=== PATIENT | male | born 1985 | race Caucasian/White ===

== ENCOUNTER 2024-09-24 17:14 | Emergency (ER) | payer BC, SELFPAY ==
[2024-09-24 17:15] VITALS: BP 170/85; PULSE 101; RESP 24; TEMP 36.8; O2SAT 100; BMI 32.3
--- NOTE | 2024-09-24 17:32 | EDS_ITS ---
<Statement entered by Slim Sánchez DO - 09/24/24 22:21> Patient was seen and examined with physician photographer assistant Chuyita All components of the history and physical confirmed and agreed. History of present illness and physical exam: Patient is a 59-year-old male with past medical history of anxiety who presents to the emergency department with concern for nicotine withdrawal. Patient states that for the past several months he has uses approximately 5 pouches a day and these are all varying and nicotine levels. He states that they range from 3 mg to 9 mg in strength. He states that he quit cold turkey and since then he has been having nausea, all headaches, shakiness. States he has been alternating Tylenol and Excedrin every 6 hours for the headache. He states that since the symptoms were not improving he came here for further evaluation management. Review of systems: As above Physical exam: Agree with above MDM: Patient is a 39-year-old male who presented to the emergency department with concern of nicotine withdrawal. On the differential diagnose includes but not limited to COVID, flu, RSV other viral etiology, nicotine withdrawal, substance abuse, alcohol withdrawal. Once workup is obtained reviewed he will be reevaluated. Patient given IV fluids, Toradol, Zofran and Ativan. Patient tested negative for COVID flu RSV. He is feeling much improved and would like to go home at this point in time. Patient was encouraged to follow- up with primary care physician return with worsening symptoms or concerns. He is agreeable to plan all question concerns answered discharged home in stable condition. Final impression: Anxiety Substance dependence Disposition: Patient will be discharged home in stable condition Supervising attending attestation: Slim Sánchez D.O. [facility] History of Present Illness Chief Complaint: Headache Narrative Narrative: 39-year-old male presents with symptoms of nicotine withdrawal after quitting nicotine pouches 5 days ago. He was using 5 pouches a day anywhere from 3 mg to 9 mg strengths. He quit cold turkey and since then he has been having nausea, a dull generalized headache with occasional sharp headache pains, and shakiness. He has been alternating Tylenol and Excedrin every 6 hours for the headache. He thought symptoms would have resolved by now and presents for evaluation. He is on chronic SSRIs and magnesium and fish oil with no other medication changes. He denies alcohol or other drug use. PFSH PFSH Allergy/AdvReac Type Severity Reaction Status Date / Time No Known Allergies Allergy Verified 09/24/24 17:15 Social History Smoking Status: Current every day smoker tobacco type: cigarettes ROS ROS ED ROS Narrative Constitutional: Negative for fever, chills. CVS: Negative for chest pain. Respiratory: Negative for shortness of breath. GI: Positive for nausea. No vomiting. Neuro: Positive for headache. EXAM Physical Exam Narrative Exam Narrative: CONST: Patient sitting in no acute distress. EYES: Normal inspection. NECK: Normal inspection. RESP: No respiratory distress, CTAB. CVS: Regular rate and rhythm, no murmur, no gallop. SKIN: Color normal, no rash, warm, dry, intact. EXTREMITIES: Normal appearance, no pedal edema. NEURO: Alert and answering questions appropriately. PSYCH: Mildly anxious and shaky. Const Vital Signs: 09/24/24 17:15 09/24/24 18:47 09/24/24 19:15 Temperature 98.2 F 100 F H 100 F H Temperature Source Oral Oral Pulse Rate 101 H 68 94 Respiratory Rate 24 H 18 18 Blood Pressure 170/85 H 125/77 H 135/74 H Blood Pressure Mean 113 93 94 Pulse Ox 100 98 95 Oxygen Delivery Method Room Air Room Air MDM MDM MDM Narrative Medical decision making narrative: History gathered from: Patient and family 39-year-old male presents with nausea, headaches, and shakiness since quitting nicotine several days ago. He denies other drug or alcohol use. He appears mildly anxious and shaky but nontoxic. BP 170/85, HR 101, RR 24, 100% on room air, afebrile. He was symptomatically treated with IV fluids, Toradol, Zofran, and Ativan 1 mg with improvement. Since he also reported a cough and bodyaches a viral swab was obtained which is negative for COVID/flu/RSV. I discussed that his symptoms from nicotine drawl only continue over the next few days to weeks. He should follow-up with a primary care doctor. He was discharged in stable condition. Discharge Plan Triage Chief Complaint: Headache ED Midlevel Provider: Chuyita Kramer ED Provider: Slim Sánchez Dx/Rx/DC Orders Clinical Impression: Nicotine dependence with withdrawal, Anxiety Instructions: ED How to Quit Smoking Primary Care Provider: Care Physician,No Primary Activity Restrictions/Additional Instructions: Nicotine withdrawal symptoms usually peak around 2 to 3 days and gradually fade over the next 2 to 4 weeks. Rest, drink plenty of fluids, and alternate Tylenol and ibuprofen every 6 hours as needed. I strongly recommend you follow-up with a primary care doctor. If you feel symptoms are worsening please be reevaluated in the ER. Print Language: Burkinan Disposition Disposition: Home, Self Care Discharge Date/Time: 09/24/24 19:18
[2024-09-24] MEDS: Ketorolac 30 MG/ML Syringe IM (17:37)
[2024-09-24] MEDS: Ondansetron ODT 4 MG Tablet PO (17:38)
[2024-09-24] MEDS: 0.9% Normal Saline (1000mL) 1,000 ML 999 ML IV (18:02)
[2024-09-24] MEDS: Lorazepam 2 MG/ML WCH Syringe 1 MG IV (18:06)
[2024-09-24 18:47] VITALS: BP 125/77; PULSE 68; RESP 18; TEMP 37.7; O2SAT 98
[2024-09-24] MEDS: Acetaminophen 500 MG Tablet 1000 MG PO (19:14)
[2024-09-24 19:15] VITALS: BP 135/74; PULSE 94; RESP 18; TEMP 37.7; O2SAT 95
== END 2024-09-24 19:18 | disposition home or self-care (01) ==
PROVIDERS: Emergency Provider Emergency Medicine; Visit Provider Emergency Medicine
DX: F17.213 Nicotine dependence, cigarettes, with withdrawal (principal); F41.9 Anxiety disorder, unspecified
CPT/HCPCS: 87631; 96361; 96372; 96374; 99283; A4216

== ENCOUNTER → 2025-03-10 | Outpatient (CLI) | payer BC, SELFPAY ==
[2025-03-10 12:35] LABS: Hematocrit 41.4 % (40-54); Hemoglobin 14.8 g/dL (13.0-16.5); Immature Granulocytes Count 0.010 X10^3/uL (0.0-0.0); Mean Corp Hgb Conc 35.7 g/dL (32-36); Mean Corpuscular Volume 87.3 fL (80-94); Mean Platelet Vol. 11.2 fl (6.2-12.0); NRBC Flagged by Analyzer 0 % (0-5); Platelet Count 211 K/mm3 (150-450); RBC Distribution Width CV 11.6 % (11.6-14.6); RBC Distribution Width SD 37.2 fl (35.1-43.9); Red Blood Count 4.74 M/mm3 (4.6-6.2); White Blood Count 4.7 K/mm3 (4.4-11.0)
[2025-03-10 13:26] LABS: AST(SGOT) 34 U/L (<=37); Alanine Aminotransfer ALT/SGPT 52 U/L (<=46); Albumin, Serum 4.4 g/dL (3.5-5.0); Alkaline Phosphatase 91 U/L (40-129); Anion Gap 10 (5-15); BUN 14 mg/dL (4-19); BUN/Creat Ratio 14.4 RATIO (10-20); Calcium,Total 9.3 mg/dL (7.6-11.0); Carbon Dioxide 27.2 mmol/L (21.0-32.0); Chloride 102 mmol/L (98-108); Globulin 2.6 g/dL (2.2-4.2); Glucose 86 mg/dL (70-99); Potassium 4.2 mmol/L (3.3-5.1); Vitamin D,25 Hydroxy 35.5 ng/mL (30-100)
[2025-03-10 14:25] LABS: Cholesterol 180 mg/dL (<=200); Low Density Lipoprotein Calc. 101 mg/dL; Triglycerides 93 mg/dL; Very Low Density Lipoprotein 19 mg/dL (5-40); cholesterol:hdl ratio screen 2.98
== END | disposition home or self-care (01) ==
LOC: MFPLAB 09:54
PROVIDERS: Visit Provider Family Medicine
DX: Z00.00 Encounter for general adult medical examination without abnormal findings (principal); Z13.220 Encounter for screening for lipoid disorders; R53.83 Other fatigue; Z13.1 Encounter for screening for diabetes mellitus
CPT/HCPCS: 36415; 80053; 80061; 82306; 83036; 84443; 85025